=== PATIENT | female | born 1950 | race Asian ===

== ENCOUNTER 2023-08-27 04:28 | Day surgery (SDC) | payer OTHER, BC ==
[2023-08-25 09:08] VITALS: BMI 28.5
[2023-08-27 10:38] VITALS: BP 100/46; PULSE 59; RESP 15; TEMP 97.8
== END 2023-08-27 10:38 | disposition home or self-care (01) ==
LOC: JASU-ENDO 04:28
PROVIDERS: ATTEND Internal Medicine Gastroenterology
PROC: 0DBL8ZX Excision of Transverse Colon, Via Natural or Artificial Opening Endoscopic, Diagnostic (ICD-10-PCS; principal; 2023-08-27 10:00)
DX: Z12.11 Encounter for screening for malignant neoplasm of colon (principal); K63.5 Polyp of colon; K57.30 Diverticulosis of large intestine without perforation or abscess without bleeding; Z86.010 Personal history of colon polyps
CPT/HCPCS: 88305-TC